=== PATIENT | female | born 1940 | race Caucasian/White ===

== ENCOUNTER → 2017-03-11 | Outpatient (CLI) | payer MEDICARE ==
[~2017-03-11] MED LIST: BARIUM SUSPENSION 2.1% (VANILLA SILQ) 450 ML PO ONE; CATHETER FLUSH 10 ML SYR IV PRN; IOHEXOL 350 MG/ML 100 ML (OMNIPAQUE 350) VIAL IV ONE; NS 100 ML (IVPB) BAG IV ONE
--- NOTE | 2017-03-11 15:58 | Diagnostic Imaging Report ---
PROCEDURE: CT chest with contrast, CT abdomen and pelvis with and without contrast. TECHNIQUE: Pre and post intravenous contrast axial imaging of the abdomen and pelvis and post contrast axial imaging of the chest were performed. INDICATION: Lymphocytosis, leukemia. There are no prior studies available for comparison. FINDINGS: The spleen is enlarged. The spleen measures 7.9 x 15.4 x 16.1 cm. The spleen does seem homogeneous. Furthermore, there are numerous enlarged lymph nodes in the perigastric region, about the pancreas and in the periaortic region. These nodes are varying size but many of them are greater than 1.5-2 cm. There are also a number of small roughly 1 cm nodes in the root of the mesentery and there are a few iliac chain nodes on the right as well. The largest of these measures roughly 1.2 cm. The adenopathy and the splenomegaly do suggest neoplasm, with lymphoma/leukemia as the primary concern. The liver is prominent and homogeneous. The pancreas is difficult to evaluate due to the adenopathy. The adrenal glands and gallbladder are unremarkable. The aorta and inferior vena cava show no sign of an acute abnormality. There are numerous cysts associated with the kidneys. These cysts have a generally benign appearance. The stomach is partially filled with oral contrast and difficult to assess. The uterus and urinary bladder are grossly unremarkable. The pelvic contents are obscured, however, by streak artifact related to bilateral orthopedic fixation rods securing a long-standing fracture of each femur. The appendix was not well visualized but there are no indirect signs of acute appendicitis. The images through the lower thorax show that the heart is enlarged and that there is a pericardial effusion. The effusion measures 1.4 cm in maximum depth. There is also mild right lower lobe atelectasis and a small amount of fluid in each lung base. The fluid in the right lung base measures 1.2 cm in maximum depth while the left-sided effusion is estimated to be 0.7 cm. IMPRESSION: 1. There is splenomegaly and abdominal/pelvic adenopathy. 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 Clinical followup is recommended. 2. There is no acute abnormality of the abdomen or pelvis. 3. There is cardiomegaly, a small pericardial effusion and small bilateral pleural effusions. Dictated by: Dictated on workstation # [id number]
== END ==
LOC: RAD 13:51 → EDBD 14:15
PROVIDERS: ATTEND Internal Medicine Hematology & Oncology
DX: R16.1 Splenomegaly, not elsewhere classified (principal); R59.0 Localized enlarged lymph nodes; I51.7 Cardiomegaly; I31.3 Pericardial effusion (noninflammatory); J90 Pleural effusion, not elsewhere classified; D72.820 Lymphocytosis (symptomatic)
CPT/HCPCS: 71260; 74178

== ENCOUNTER 2017-03-26 08:39 | Outpatient (RCR) | payer MEDICARE, OTHER ==
[2017-03-11 11:03] LABS: BASOPHILS % (AUTO) 0 % (0-10); EOSINOPHILS % (AUTO) 0 % (0-10); LYMPHOCYTES % (AUTO) 72 % (12-44); MEAN CORPUSCULAR HEMOGLOBIN 30 PG (25-34); MEAN CORPUSCULAR HGB CONC 33 G/DL (32-36); MEAN CORPUSCULAR VOLUME 92 FL (80-99); MEAN PLATELET VOLUME 9.6 FL (7.4-10.4); MONOCYTES # (AUTO) 0.6 X 10^3 (0.0-1.0); MONOCYTES % (AUTO) 4 % (0-12); NEUTROPHILS # (AUTO) 3.6 X 10^3 (1.8-7.8); NEUTROPHILS % (AUTO) 23 % (42-75); PLATELET COUNT 140 10^3/uL (130-400); RED BLOOD COUNT 4.57 10^6/uL (4.35-5.85); RED CELL DISTRIBUTION WIDTH 14.1 % (10.0-14.5); WHITE BLOOD COUNT 15.2 10^3/uL (4.3-11.0)
[2017-03-11 11:29] LABS: ALBUMIN 3.7 GM/DL (3.2-4.5); BILIRUBIN,TOTAL 1.4 MG/DL (0.1-1.0); CALCIUM 9.7 MG/DL (8.5-10.1); CREATININE SERUM 1.1 MG/DL (0.60-1.30); POTASSIUM 4.1 MMOL/L (3.6-5.0); TOTAL PROTEIN 6.2 GM/DL (6.4-8.2)
[2017-03-16 16:17] LABS: CLINICAL IND D72.820
[2017-03-17 07:41] LABS: B CELL CLL BY FISH See Report
== END 2017-04-09 13:44 | disposition home or self-care (01) ==
LOC: EDBD → ONC 08:39
PROVIDERS: ATTEND Internal Medicine Hematology & Oncology
DX: D72.820 Lymphocytosis (symptomatic) (principal)
CPT/HCPCS: 36415; 80053; 83615; 85025; 88184; 88185; 88368; 88369; 99214

== ENCOUNTER 2017-09-20 12:34 | Outpatient (RCR) | payer MEDICARE ==
[2017-06-28 13:58] LABS: BASOPHILS # (AUTO) 0.1 10^3/uL (0.0-0.1); BASOPHILS % (AUTO) 0 % (0-10); EOSINOPHILS % (AUTO) 0 % (0-10); HEMATOCRIT 41 % (35-52); LYMPHOCYTES # (AUTO) 20.6 X 10^3 (1.0-4.0); LYMPHOCYTES % (AUTO) 80 % (12-44); MEAN CORPUSCULAR HEMOGLOBIN 32 PG (25-34); MEAN CORPUSCULAR HGB CONC 34 G/DL (32-36); MEAN CORPUSCULAR VOLUME 94 FL (80-99); MEAN PLATELET VOLUME 10.3 FL (7.4-10.4); MONOCYTES # (AUTO) 0.9 X 10^3 (0.0-1.0); MONOCYTES % (AUTO) 3 % (0-12); NEUTROPHILS # (AUTO) 4.1 X 10^3 (1.8-7.8); NEUTROPHILS % (AUTO) 16 % (42-75); PLATELET COUNT 112 10^3/uL (130-400); RED BLOOD COUNT 4.36 10^6/uL (4.35-5.85); RED CELL DISTRIBUTION WIDTH 14.2 % (10.0-14.5); WHITE BLOOD COUNT 25.6 10^3/uL (4.3-11.0)
[2017-06-28 14:36] LABS: ALANINE AMINOTRANSFERASE < 6 U/L (0-55); ALBUMIN 3.4 GM/DL (3.2-4.5); ALKALINE PHOSPHATASE 83 U/L (40-136); BILIRUBIN,TOTAL 1.4 MG/DL (0.1-1.0); BUN/CREATININE RATIO 11; CALCIUM 9.5 MG/DL (8.5-10.1); CARBON DIOXIDE 26 MMOL/L (21-32); CHLORIDE 109 MMOL/L (98-107); CREATININE SERUM 1.37 MG/DL (0.60-1.30); GFR ESTIMATED 37; GLUCOSE 157 MG/DL (70-105); POTASSIUM 3.7 MMOL/L (3.6-5.0); SODIUM 142 MMOL/L (135-145); TOTAL PROTEIN 6.1 GM/DL (6.4-8.2)
[2017-09-20 13:10] LABS: BASOPHILS # (AUTO) 0.1 10^3/uL (0.0-0.1); BASOPHILS % (AUTO) 0 % (0-10); EOSINOPHILS % (AUTO) 0 % (0-10); HEMATOCRIT 41 % (35-52); HEMOGLOBIN 14.3 G/DL (11.5-16.0); LYMPHOCYTES # (AUTO) 19.6 X 10^3 (1.0-4.0); LYMPHOCYTES % (AUTO) 92 % (12-44); MEAN CORPUSCULAR HEMOGLOBIN 33 PG (25-34); MEAN CORPUSCULAR HGB CONC 35 G/DL (32-36); MEAN CORPUSCULAR VOLUME 94 FL (80-99); MEAN PLATELET VOLUME 9.8 FL (7.4-10.4); MONOCYTES # (AUTO) 0.7 X 10^3 (0.0-1.0); MONOCYTES % (AUTO) 3 % (0-12); NEUTROPHILS # (AUTO) 0.9 X 10^3 (1.8-7.8); NEUTROPHILS % (AUTO) 4 % (42-75); PLATELET COUNT 119 10^3/uL (130-400); RED CELL DISTRIBUTION WIDTH 13.2 % (10.0-14.5); WHITE BLOOD COUNT 21.3 10^3/uL (4.3-11.0)
[2017-09-20 13:30] LABS: ALBUMIN 3.6 GM/DL (3.2-4.5); BILIRUBIN,TOTAL 1.3 MG/DL (0.1-1.0); CALCIUM 10.3 MG/DL (8.5-10.1); CREATININE SERUM 1.57 MG/DL (0.60-1.30); TOTAL PROTEIN 6.1 GM/DL (6.4-8.2)
== END 2017-09-26 | disposition home or self-care (01) ==
LOC: ONC 12:34
PROVIDERS: ATTEND Internal Medicine Hematology & Oncology
DX: C91.10 Chronic lymphocytic leukemia of B-cell type not having achieved remission (principal); F03.90 Unspecified dementia, unspecified severity, without behavioral disturbance, psychotic disturbance, mood disturbance, and anxiety; I12.9 Hypertensive chronic kidney disease with stage 1 through stage 4 chronic kidney disease, or unspecified chronic kidney disease; N18.3 Chronic kidney disease, stage 3 (moderate); Z79.899 Other long term (current) drug therapy
CPT/HCPCS: 36415; 80053; 83615; 85025; 99213